=== PATIENT | male | born 1940 | race Caucasian/White ===

== ENCOUNTER 2017-10-21 10:30 | Outpatient (RCR) | payer OTHER, SELFPAY | END 2018-02-14 13:16 | LOC: SP 10:30 | PROVIDERS: Family Provider Psychiatry & Neurology Neurology; PCP Psychiatry & Neurology Neurology; Visit Provider Psychiatry & Neurology Neurology | DX: I63.431 Cerebral infarction due to embolism of right posterior cerebral artery (principal) | CPT/HCPCS: 92507 ==